=== PATIENT | female | born 1990 | race Caucasian/White ===

== ENCOUNTER 2019-06-27 18:12 | Emergency (ER) | payer BC, OTHER ==
[2019-06-27 18:16] VITALS: BP 109/57; PULSE 64; TEMP 98.2; BMI 23.5
[2019-06-27] MEDS ORDERED: SODIUM CHLORIDE 0.9% 500 ML INFUS.BAG IV ONE (20:32)
[2019-06-27] MEDS ORDERED: ONDANSETRON 4 MG/2 ML VIAL IVPB ONE (20:32)
[2019-06-27] MEDS ORDERED: ONDANSETRON 4 MG/2 ML VIAL ONE (20:36)
[2019-06-27 21:35] LABS: BASO % 0.6 % (0-2.0); EOS % 4.4 % (0-4.5); HEMATOCRIT 37.5 % (32.4-45.2); HEMOGLOBIN 12.8 GM/dL (10.7-15.3); LYMPH % 47.7 % (8-40); MCH 30.5 pg (25.7-33.7); MCHC 34.1 g/dl (32.0-36.0); MEAN CELL VOLUME 89.4 fl (80-96); MEAN PLT VOLUME 9.1 fl (7.5-11.1); MONO % 10.8 % (3.8-10.2); NEUT % 36.5 % (42.8-82.8); PLATELET COUNT 290 K/MM3 (134-434); RDW 13.5 % (11.6-15.6); WHITE BLOOD COUNT 4.6 K/mm3 (4.0-10.0)
[2019-06-27 22:12] LABS: ALBUMIN 3.5 g/dl (3.4-5.0); BILIRUBIN,TOTAL 0.3 mg/dL (0.2-1); BLOOD UREA NITROGEN 8.2 mg/dL (7-18); CALCIUM 8.3 mg/dL (8.5-10.1); CREATININE 0.8 mg/dL (0.55-1.3); TOT PROT 6.7 g/dl (6.4-8.2)
--- NOTE | 2019-06-27 22:25 | PDOC ---
History of Present Illness - General Chief Complaint: Vomiting/Diarrhea Stated Complaint: VOMITING/DIARREHEA Time Seen by Provider: 06/27/19 20:28 - History of Present Illness Initial Comments: 06/27/19 22:23 29-year-old female without comorbidities presents for vomiting and diarrhea x3 days without systemic symptoms. Past History - Past Medical History Allergies/Adverse Reactions: Allergies Allergy/AdvReac Type Severity Reaction Status Date / Time No Known Allergies Allergy Verified 06/27/19 18:17 Home Medications: Ambulatory Orders NK [No Known Home Medication] 06/27/19 COPD: No - Psycho Social/Smoking Cessation Hx Smoking History: Never smoked Review of Systems - Review of Systems ABD/GI: Yes: Diarrhea, Nausea, Vomiting. No: Blood Streaked Bowels *Physical Exam - Vital Signs Last Vital Signs Temp Pulse Resp BP Pulse Ox 98.2 F 64 18 109/57 L 100 06/27/19 18:14 06/27/19 18:14 06/27/19 18:14 06/27/19 18:14 06/27/19 18:14 - Physical Exam 06/27/19 22:23 GENERAL: The patient is awake, alert, and fully oriented, in no acute distress. HEAD: Normal with no signs of trauma. EYES: sclera anicteric, conjunctiva clear. ENT: Ears normal tympanic membranes normal oropharynx clear uvula midline NECK: Normal range of motion LUNGS: Breath sounds equal, clear to auscultation bilaterally. No wheezes, and no crackles. HEART: S1 and S2 without murmur, rub or gallop. ABDOMEN: Soft, nontender, normoactive bowel sounds. No guarding, no rebound. No masses. EXTREMITIES: Normal range of motion, no edema. No clubbing or cyanosis. No cords, erythema, or tenderness. NEUROLOGICAL: Cranial nerves II through XII grossly intact. Normal speech, normal gait. PSYCH: Normal mood, normal affect. SKIN: Warm, Dry, normal turgor, no rashes or lesions noted. ED Treatment Course - LABORATORY CBC & Chemistry Diagram: 06/27/19 21:15 06/27/19 21:15 - ADDITIONAL ORDERS Additional order review: Laboratory Results 06/27/19 06/27/19 21:15 21:15 Sodium 141 Potassium 4.0 Chloride 109 H Carbon Dioxide 29 Anion Gap 4 L BUN 8.2 Creatinine 0.8 Est GFR (CKD-EPI)AfAm 116.28 Est GFR (CKD-EPI)NonAf 100.33 Random Glucose 86 Calcium 8.3 L Total Bilirubin 0.3 AST 12 L ALT 15 Alkaline Phosphatase 56 Total Protein 6.7 Albumin 3.5 Lipase 88 Serum , Qual Negative 06/27/19 21:15 RBC 4.20 MCV 89.4 MCHC 34.1 RDW 13.5 MPV 9.1 Neutrophils % 36.5 L Lymphocytes % 47.7 H Monocytes % 10.8 H Eosinophils % 4.4 Basophils % 0.6 - Medications Given in the ED: ED Medications Discontinued Medications Generic Name Dose Route Start Last Admin Trade Name Freq PRN Reason Stop Dose Admin Ondansetron HCl 4 mg 06/27/19 20:32 06/27/19 20:41 Zofran Injection IVPB 06/27/19 20:33 4 mg ONCE ONE Administration Sodium Chloride 1,000 ml 06/27/19 20:32 06/27/19 20:41 Normal Saline - IV 06/27/19 20:33 1,000 ml ONCE ONE Administration Medical Decision Making - Medical Decision Making 06/27/19 22:24 Patient feeling much better after fluids and Zofran work note provided for viral gastroenteritis follow-up with PCP Discharge - Discharge Information Problems reviewed: Yes Clinical Impression/Diagnosis: Viral gastroenteritis Condition: Improved Disposition: HOME - Admission No - Follow up/Referral Referrals: Nicky Alvarez MD [Primary Care Provider] - - Patient Discharge Instructions Additional Instructions: Clear liquid diet and soft bland foods such as crackers and soup. Pedialyte multiple times a day for hydration. Return to the emergency room for worsening symptoms and without fail follow-up with your primary care physician in 2 to 3 days for further evaluation and treatment options. - Post Discharge Activity Work/Back to School Note: Back to Work
== END 2019-06-28 00:07 | disposition home or self-care (01) ==
LOC: JERFT 18:12 → JER 18:12 → JERFT 06-28 00:07
PROC: 3E033GC Introduction of Other Therapeutic Substance into Peripheral Vein, Percutaneous Approach (ICD-10-PCS; principal; 2019-06-27)
DX: A08.4 Viral intestinal infection, unspecified (principal); B97.89 Other viral agents as the cause of diseases classified elsewhere
CPT/HCPCS: 36415; 80053; 83690; 84703; 85025; 99282-25